=== PATIENT | female | born 2000 | race Caucasian/White ===

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

== ENCOUNTER 2021-11-03 22:56 | Inpatient (IN) | payer OTHER ==
[~2021-11-03] VITALS: Ht 152.4 cm; Wt 65.8 kg
[~2021-11-03 22:56] MED LIST changes: +K-DUR TAB 20 M20 MEQ PO; +OMNICEF 300 MG300 MG PO
[2021-11-04 01:54] LABS: RED BLOOD COUNT 3.73 M/UL (4.00-5.10); WHITE BLOOD COUNT 12.6 K/UL (4.5-11.0)
[2021-11-04] MEDS ORDERED: FEROSUL325 MG PO (10:08)
[2021-11-04] MEDS ORDERED: IBUPROFEN600 MG PO (14:25)
[2021-11-04] MEDS ORDERED: COLACE100 MG PO (14:25)
[2021-11-05 04:51] LABS: HEMOGLOBIN 11.1 gm/dl (12.3-15.3)
== END 2021-11-06 13:53 | disposition home or self-care (01) | DRG 807 ==
LOC: GENOP 22:56 → OB 11-04 01:41
PROVIDERS: ADMIT Obstetrics & Gynecology
PROC: 4A1HXCZ Monitoring of Products of Conception, Cardiac Rate, External Approach (ICD-10-PCS; 2021-11-03)
PROC: 10E0XZZ Delivery of Products of Conception, External Approach (ICD-10-PCS; principal; 2021-11-04)
PROC: 3E0234Z Introduction of Serum, Toxoid and Vaccine into Muscle, Percutaneous Approach (ICD-10-PCS; 2021-11-04)
PROC: 3E02340 Introduction of Influenza Vaccine into Muscle, Percutaneous Approach (ICD-10-PCS; 2021-11-04)
DX: O42.02 Full-term premature rupture of membranes, onset of labor within 24 hours of rupture (principal); Z37.0 Single live birth; Z3A.39 39 weeks gestation of pregnancy; Z28.310 Unvaccinated for COVID-19; Z80.1 Family history of malignant neoplasm of trachea, bronchus and lung; Z23 Encounter for immunization
CPT/HCPCS: 36415; 80307; 81001; 82800; 84112; 85014; 85018; 85025; 90471; 90686; 90715; G0008; J0595; J2210; J2405; J3010